=== PATIENT | female | born 1955 | race Caucasian/White ===

== ENCOUNTER 2017-11-16 14:56 | Emergency (ER) | payer OTHER ==
[~2017-11-16] VITALS: Ht 170.2 cm; Wt 95.3 kg
--- NOTE | 2017-11-16 18:18 | ED INFLUENZA/URI COMPLAINT ---
History of Present Illness General Chief Complaint: General Adult Stated Complaint: SIB WALK IN DIZZY,BAD COUGH, ?PNEMONIA Source: patient, old records Exam Limitations: no limitations Vital Signs & Intake/Output Vital Signs & Intake/Output Vital Signs Date Time Temp Pulse Resp B/P B/P Pulse O2 O2 Flow FiO2 Mean Ox Delivery Rate 11/160 104/62 11/16 2158 97.2 75 18 99/74 95 11/16 2038 Room Air 11/16 1943 98.4 96 18 112/66 99 Room Air 11/16 1517 99.4 112 18 112/68 95 Room Air Room Air ED Intake and Output 11/17 0000 11/16 1200 Intake Total Output Total Balance Patient 95.254 kg Weight Weight Reported by Patient Measurement Method Allergies Coded Allergies: NO KNOWN ALLERGIES (08/16/16) Reconcile Medications Amoxicillin/Potassium Clav (Augmentin 875-125 Tablet) 875 MG-125 MG TABLET 1 TAB PO BID BRONCHITIS Magnesium Oxide (Magnesium) 400 MG CAPSULE 1 CAP PO DAILY HYPOMAGNESEMIA Potassium Chloride 10 MEQ TABLET.ER 1 TAB PO DAILY HYPOKALEMIA Triage Note: TRIAGE: 62 Y/O FEMALE PRESENTS FROM [facility] FOR "?VIRAL PNEUMONIA" - "FAILED Z PACK. TEMP 99.4 IN TRIAGE. Triage Nurses Notes Reviewed? yes HPI: 62F PMH COPD, heavy smoker, HTN with 3 days of worsening cough with brown sputum , dyspnea on exertion, fatigue, decreased PO intake, and dehydration. Saw her PCP 3 days ago and given Azithromycin. Went to urgent care today and had CXR, brought CD of imaging which shows LLL infiltrate. She denies fever, chills, headache, neck stiffness, abdominal pain, diarrhea, dysuria. She has chest pain with coughing. She is able to perform her ADL's and is eating small amounts. She is speaking in full sentences and appears comfortable. Past History Travel History Traveled to [place] past 21 day No Medical History Any Pertinent Medical History? see below for history Cardiovascular: hypertension Surgical History Surgical History: non-contributory Psychosocial History What is your primary language Italian Tobacco Use: Current Daily Use Daily Tobacco Use Amount/Type: => 5 Cigarettes daily ETOH Use: occasional use Illicit Drug Use: denies illicit drug use Family History Hx Contributory? No Review of Systems Review of Systems Constitutional: Reports: no symptoms. EENTM: Reports: no symptoms. Respiratory: Reports: no symptoms. Cardiovascular: Reports: no symptoms. GI: Reports: no symptoms. Genitourinary: Reports: no symptoms. Musculoskeletal: Reports: no symptoms. Skin: Reports: no symptoms. Neurological/Psychological: Reports: no symptoms. Hematologic/Endocrine: Reports: no symptoms. Immunologic/Allergic: Reports: no symptoms. All Other Systems: Reviewed and Negative Physical Exam Physical Exam General Appearance: well developed/nourished, no apparent distress Head: atraumatic, normal appearance Eyes: Bilateral: normal appearance. Ears, Nose, Throat: dry mucous membranes Neck: normal inspection, supple, full range of motion Respiratory: left sided rhonchi Cardiovascular: regular rate/rhythm Gastrointestinal: soft, non-tender Extremities: normal inspection, normal capillary refill, normal range of motion Neurologic/Psych: awake, alert, oriented x 3, normal mood/affect Skin: intact, normal color, warm/dry Core Measures Sepsis Present: No Sepsis Focused Exam Completed? No Progress Differential Diagnosis: influenza, meningitis, neutropenia, otitis, pneumonia, pharyngitis, sinusitis Plan of Care: Orders Procedure Date/time Status BASIC ELECTROLYTES PLUS BUN&CR 11/16 2054 Complete Add-on Test (ER Only) 11/16 1953 Active MAGNESIUM 11/16 1899 Complete RAPID VIRAL INFLUENZA A 11/16 1841 Complete COMPREHENSIVE METABOLIC PANEL 11/16 184 Complete CBC WITHOUT DIFFERENTIAL 11/16 1841 Complete Laboratory Tests 11/16/170: Anion Gap 12, Estimated GFR > 60, BUN/Creatinine Ratio 15.7 11/16/17 1900: Anion Gap 11, Estimated GFR > 60, BUN/Creatinine Ratio 20.0, Glucose 79, Calcium 7.5 L, Magnesium 1.5 L, Total Bilirubin 0.1 L, AST 25, ALT 48, Alkaline Phosphatase 51, Total Protein 5.6 L, Albumin 3.0 L, Globulin 2.6, Albumin/ Globulin Ratio 1.2, CBC w Diff NO MAN DIFF REQ, RBC 5.89 H, MCV 86.0, MCH 28.2, MCHC 32.8 L, RDW 13.3, MPV 10.5 H, Gran % 31.4 L, Lymphocytes % 49.3, Monocytes % 16.4 H, Eosinophils % 2.0, Basophils % 0.9, Absolute Granulocytes 1.2 L, Absolute Lymphocytes 2.0, Absolute Monocytes 0.7 H, Absolute Eosinophils 0.1, Absolute Basophils 0 Microbiology 11/16 1849 NASOPHARYN: Influenza Virus A & B Rapid Smear - COMP Diagnostic Imaging: Viewed by Me: Radiology Read. CXR Impression: PATIENT: NEGAR KEATING PRESENT AGE: 62 PATIENT ACCOUNT NO: [id number] : 57 LOCATION: [facility] ORDERING PHYSICIAN: Christiana Singh MD SERVICE DATE: 11/16/17 EXAM TYPE: RAD - XRY-CHEST XRAY, TWO VIEWS EXAMINATION: XR CHEST CLINICAL INFORMATION: Cough, fever and left lower lobe bronchi COMPARISON: 12/15/2013 TECHNIQUE: 2 views of the chest were obtained. FINDINGS: The lungs are well-inflated and clear. Chronic mild biapical pleural thickening. Trachea is midline in position. No evidence of interstitial lung disease, focal consolidation, mass or pleural effusion. The cardiomediastinal silhouette and pulmonary guanaco have normal size and contour. There is mild prominence of the left paracardiac fat pad. Bones appear diffusely osteopenic.. The visualized upper abdomen is unremarkable. IMPRESSION: No acute cardiopulmonary findings compared to 12/15/2013. DICTATED BY: Fredis Zamora MD DATE/TIME DICTATED:11/16/172049 [employer] MACHINE OPERATOR:JAMIR DATE/TIME TRANSCRIBED:11/16/172049 Initial ED EKG: none Departure Departure Disposition: HOME OR SELF CARE Condition: Stable Clinical Impression Primary Impression: Acute bronchitis Secondary Impressions: Hypokalemia Referrals: Kena JOHNSON,Yoshi Avila (PCP/Family) Additional Instructions: Follow up with your primary care doctor tomorrow for repeat potassium and magnesium testing. Take a potassium and magnesium supplement tonight, and again tomorrow and the following day. Please see your doctor by then so he can check your potassium and magnesium levels. Take your new antibiotic as prescribed. You should finish your Azithromycin prescription. Return to emergency room if you experience chest pain, palpitations, worsening shortness of breath, lightheadedness, or any other new or worsening symptom. Departure Forms: Customer Survey General Discharge Information Prescriptions: Current Visit Scripts Potassium Chloride 1 TAB PO DAILY #5 TAB Magnesium Oxide (Magnesium) 1 CAP PO DAILY #5 CAP Amoxicillin/Potassium Clav (Augmentin 875-125 Tablet) 1 TAB PO BID #14 TAB
[2017-11-16 19:17] LABS: ABSOLUTE BASOPHIL COUNT 0 /CUMM (0.0-0.2); ABSOLUTE EOSINOPHIL COUNT 0.1 /CUMM (0.0-0.7); ABSOLUTE GRANULOCYTE CT 1.2 /CUMM (1.4-6.5); ABSOLUTE MONOCYTE COUNT 0.7 /CUMM (0.10-0.60); BASOPHIL % 0.9 % (0.0-2.0); GRANULOCYTE % 31.4 % (42.2-75.2); HEMATOCRIT 50.7 % (37-47); MEAN CORPUSCULAR HGB 28.2 PG (27.0-31.0); MEAN CORPUSCULAR HGB CONC 32.8 G/DL (33.0-37.0); MEAN PLATELET VOLUME 10.5 FL (7.4-10.4); PLATELET COUNT 170 /CUMM (130-400); RBC DISTRIBUTION WIDTH 13.3 % (11.5-14.5); RED BLOOD CELL CT 5.89 /CUMM (4.20-5.40)
--- NOTE | 2017-11-16 20:55 | RADIOLOGY REPORT ---
EXAMINATION: XR CHEST CLINICAL INFORMATION: Cough, fever and left lower lobe bronchi COMPARISON: 12/15/2013 TECHNIQUE: 2 views of the chest were obtained. FINDINGS: The lungs are well-inflated and clear. Chronic mild biapical pleural thickening. Trachea is midline in position. No evidence of interstitial lung disease, focal consolidation, mass or pleural effusion. The cardiomediastinal silhouette and pulmonary guanaco have normal size and contour. There is mild prominence of the left paracardiac fat pad. Bones appear diffusely osteopenic.. The visualized upper abdomen is unremarkable. IMPRESSION: No acute cardiopulmonary findings compared to 12/15/2013.
[2017-11-16] MEDS ORDERED: AUGMENTIN 875-1 EACH PO (21:59)
[2017-11-16] MEDS ORDERED: MAGNESIUM400 M1 PO (21:59)
[2017-11-16] MEDS ORDERED: POTASSIUM CHLO10 ME4 PO (21:59)
[2017-11-16 22:10] VITALS: BP 104/62
== END 2017-11-16 22:30 ==
LOC: ERH 14:56
PROVIDERS: Internal Medicine
DX: J20.9 Acute bronchitis, unspecified (principal); E87.6 Hypokalemia; Z72.0 Tobacco use
CPT/HCPCS: 71046; 82436; 87804; 87804-59; 96374; 96375; J0456; J0696; J7060